=== PATIENT | male | born 1965 | race African-American/Black ===

== ENCOUNTER 2019-04-06 15:27 | Emergency (ER) | payer MEDICARE, MEDICAID ==
[~2019-04-06 15:27] MED LIST: ISOVUE-370 76%-LOCM 1 ML ONE; Iopamidol 370 76% 50 ML VIAL FS ONE
[2019-04-06 16:50] LABS: #Eosinphils 0.2 thou/uL (0.0-0.7); #Lymphocytes 1.7 thou/uL (1.20-3.40); #Monocytes 0.6 thou/uL (0.11-0.59); #Neutrophils 4.1 thou/uL (1.40-6.50); %Basophils 0.6 % (0.0-1.0); %Eosinophils 3.1 % (0.0-10.0); %Lymphocytes 25.9 % (21.0-51.0); %Monocytes 8.9 % (0.0-10.0); %Neutrophils 61.5 % (42.0-75.0); Hemoglobin 14.5 g/dL (14.0-18.0); Mean Corpuscular HGB CONC 33.2 g/dL (32.0-36.0); Mean Corpuscular Hemoglobin 30.6 pg (27.0-31.0); Mean Platelet Volume 8.7 fL (7.4-10.4); Platelet Count 218 thou/uL (130-400); RBC Distribution Width 12.5 % (11.5-14.5); Red Blood Cell (RBC) Count 4.76 mill/uL (4.70-6.10); White Blood Cell (WBC) Count 6.7 thou/uL (4.8-10.8)
[2019-04-06 17:00] LABS: Bilirubin Negative (Negative); Blood, Urine Negative (Negative); Clarity CLOUDY (Clear); Glucose, Urine (Dipstick) Negative (Negative); Leukocyte Negative (Negative); Nitrite Negative (Negative); Protein, Urine (Dipstick) Negative (Neg-Trace); Specific Gravity, Urine 1.016 (1.002-1.036); Urobilinogen 0.2 mg/dL (0.2-1.0)
[2019-04-06 17:11] LABS: ALT (SGPT) 11 U/L (8-55); AST (SGOT) 11 U/L (5-34); Albumin 4.5 g/dL (3.5-5.0); Alkaline Phosphatase 75 U/L (40-150); Anion Gap 12 mmol/L (10-20); BUN (Urea Nitrogen) 15 mg/dL (8.4-25.7); Bilirubin, Total 0.5 mg/dL (0.2-1.2); Calc. Creatinine Clearance 0 mL/min (70-130); Calcium 9.7 mg/dL (7.8-10.44); Carbon Dioxide 25 mmol/L (22-29); Chloride 107 mmol/L (98-107); Estimated GFR-MDRD 53; Glucose 112 mg/dL (70-105); Lipase 19 U/L (8-78); Potassium 3.8 mmol/L (3.5-5.1); Protein, Total 7.5 g/dL (6.0-8.3); Sodium 140 mmol/L (136-145)
--- NOTE | 2019-04-06 20:18 | CT ---
CT ABDOMEN AND PELVIS WITH CONTRAST: 04/06/19 Multiple axial tomograms obtained through the abdomen and pelvis with IV enhancement. Oral contrast w as given. INDICATIONS: Abdominal pain. FINDINGS: The lung bases are clear. There is a large fixed diaphragmatic hernia. Most of the stomach is above the diaphragm. Liver, spleen and pancreas unremarkable. Adrenal glands appear normal. Kidneys unremarkable. Small bowel loops unremarkable. Colon unremarkable. Appendix appears normal. Aorta normal caliber. IMPRESSION: Large fixed diaphragmatic hernia. POS: RANI
== END 2019-04-06 19:57 | disposition home or self-care (01) ==
LOC: ERS 15:27
DX: R10.30 Lower abdominal pain, unspecified (principal)
CPT/HCPCS: 74177; 80053; 81003; 82274; 83690; 84484; 85025; 93005; Q9966; Q9967